=== PATIENT | female | born 1995 | race Caucasian/White ===

== ENCOUNTER 2022-07-01 12:54 | Emergency (ER) | payer BC ==
[~2022-07-01] VITALS: Ht 165.1 cm; Wt 72.6 kg
[~2022-07-01 12:54] MED LIST: DIVA500E2 PO; KEP500 PO
[2022-07-01 12:58] VITALS: BP 123/90
--- NOTE | 2022-07-01 15:06 | NUR ---
NEUROLOGY SPEAKING WITH PT AND FAMILY
[2022-07-01] MEDS ORDERED: LORazepam 2 MG/ML VIAL IM ONE (15:35)
[2022-07-01] MEDS ORDERED: LORazepam 1 MG TAB PO ONE (15:35)
[2022-07-01 16:21] VITALS: BP 129/80
--- NOTE | 2022-07-01 18:02 | NUR ---
PT SIGNED AMA TO SEEK TREATMENT AT HIGHER LEVEL OF CARE
== END 2022-07-01 18:02 | disposition left against medical advice (07) ==
LOC: MED 12:54
DX: R56.9 Unspecified convulsions (principal); Z20.822 Contact with and (suspected) exposure to COVID-19; E11.9 Type 2 diabetes mellitus without complications; Z85.841 Personal history of malignant neoplasm of brain; Z79.4 Long term (current) use of insulin; Z79.899 Other long term (current) drug therapy
CPT/HCPCS: 87426; 96372; 99283; J2060

== ENCOUNTER 2023-02-22 18:27 | Inpatient (IN) | payer BC ==
[~2023-02-22] VITALS: Ht 162.6 cm; Wt 90.3 kg
[2023-02-22 18:30] VITALS: BP 135/91; PULSE 94; TEMP 99.8; O2SAT 100
[2023-02-22] MEDS ORDERED: LORazepam 2 MG/ML VIAL IVP ONE (18:50)
[2023-02-22] MEDS ORDERED: NACL 0.9% 1,000 ML IV ONE (18:50)
[2023-02-22 19:30] LABS: BASOPHILS % (AUTO) 0.6 % (0.0-2.0); EOSINOPHILS % (AUTO) 0.1 % (0.0-4.0); HEMATOCRIT 38.7 % (36-48); HEMOGLOBIN 13.3 g/dL (12.0-16.0); LYMPHOCYTES # (AUTO) 2.5 K/uL (2.5-16.5); LYMPHOCYTES % (AUTO) 34.3 % (20.5-51.1); MEAN CORPUSCULAR HEMOGLOBIN 32 pg (27-31); MEAN CORPUSCULAR HGB CONC 34 g/dL (33-37); MONOCYTES # (AUTO) 0.4 K/uL (0.8-1.0); MONOCYTES % (AUTO) 6.2 % (1.7-9.3); NEUTROPHILS # (AUTO) 4.2 K/uL (1.8-7.7); NEUTROPHILS % (AUTO) 58.8 % (42.2-75.2); PLATELET COUNT (AUTO) 346 K/uL (140-450); RED BLOOD CELL COUNT(AUTO) 4.21 MIL/uL (4.20-5.40); WHITE BLOOD COUNT (AUTO) 7.2 K/uL (4.8-10.8)
[2023-02-22 19:45] LABS: ALBUMIN 3.7 g/dL (3.4-5.0); ANION GAP 18.1 (8-16); CARBON DIOXIDE 19.6 mmol/L (21-32); CREATININE 0.7 mg/dL (0.6-1.3); POTASSIUM 3.7 mmol/L (3.5-5.1); TOTAL BILIRUBIN 0.4 mg/dL (0.0-1.0); TOTAL PROTEIN, SERUM 7.5 g/dL (6.4-8.2)
[2023-02-22] MEDS ORDERED: ONDANSETRON 4 MG/2 ML VIAL IVP ONE (19:55)
[2023-02-22 20:15] LABS: BLOOD GAS BASE EXCESS -3.4 mmol/L (-2.0-2.0); BLOOD GAS HCO3 19.7 mmol/L (22-26); BLOOD GAS PCO2 30.1 mmHg (35-45); BLOOD GAS PH 7.434 (7.35-7.45); BLOOD GAS PO2 89.2 mmHg (75-100)
[2023-02-22] MEDS ORDERED: POTASSIUM CHLORIDE 10 MEQ TABER PO ONE (20:40)
[2023-02-22] MEDS ORDERED: INSULIN REGULAR, HUMAN 100 UNIT in NACL 0.9% 100 ML IV SCH ×4 (20:40→22:15)
[2023-02-22] MEDS ORDERED: DEXTROSE 50% 50 ML SYR IVP PRN ×2 (20:40→22:15)
[2023-02-22] MEDS: DEXT 5% / NACL 0.45% 1,000 ML IV SCH (21:00)
[2023-02-22] MEDS: BLOOD GLUCOSE MONITORING 1 DEV DEV FS SCH ×4 (21:01→23:15)
[2023-02-22] MEDS: NACL 0.9% 1,000 ML IV SCH ×2 (21:01→22:15)
[2023-02-22] MEDS ORDERED: guaiFENesin DM 200/20 MG-10 ML 10 ML UDC PO PRN (22:10)
[2023-02-22] MEDS ORDERED: ONDANSETRON 4 MG/2 ML VIAL IM/IVP PRN (22:10)
[2023-02-22] MEDS ORDERED: DOCUSATE SODIUM 100 MG GELCAP PO PRN (22:10)
[2023-02-22] MEDS ORDERED: NACL 0.9% 1,000 ML IV SCH (22:10)
[2023-02-22] MEDS ORDERED: ACETAMINOPHEN 325 MG TAB PO PRN (22:10)
[2023-02-22] MEDS ORDERED: HYDROcodone/APAP 7.5/325 MG 1 TAB PO PRN (22:10)
[2023-02-22] MEDS ORDERED: ZOLPIDEM 5 MG TAB PO PRN (22:10)
[2023-02-22] MEDS ORDERED: POTASSIUM CHLORIDE 10 MEQ TABER PO PRN (22:10)
[2023-02-22] MEDS ORDERED: INSULIN REGULAR, HUMAN 100 UNIT/ML VIAL IVP ONE (22:15)
[2023-02-22] MEDS ORDERED: DEXT 5% / NACL 0.45% 1,000 ML IV SCH (22:15)
[2023-02-22] MEDS ORDERED: BLOOD GLUCOSE MONITORING 1 DEV DEV FS SCH (22:15)
[2023-02-22] MEDS ORDERED: POTASSIUM CHLORIDE 40 MEQ, LIDOCAINE MPF 1% 25 MG in NACL 0.9% 250 ML IV PRN ×6 (22:15)
[2023-02-22 22:28] LABS: ALCOHOL, BLOOD < 3 mg/dL (<10)
[2023-02-22 22:29] LABS: ACETAMINOPHEN < 0.5 ug/ml (10-30); SALICYLATE < 2.8 mg/dL (2.8-20.0)
[2023-02-22 23:00] VITALS: BP 120/66; PULSE 96; RESP 20; TEMP 97.3; O2SAT 98
[2023-02-22 23:55] LABS: APPEARANCE,URINE CLEAR (CLEAR); BILIRUBIN,URINE NEGATIVE (NEGATIVE); BLOOD, URINE NEGATIVE (NEGATIVE); COLOR,URINE YELLOW (YELLOW); LEUKOCYTE ESTERASE ,URINE NEGATIVE (NEGATIVE); NITRITE, URINE NEGATIVE (NEGATIVE); PH,URINE 6.5 (5.0-9.0); PROTEIN,URINE NEGATIVE (NEGATIVE); UGLUCOSE 1+ (NEGATIVE); UROBILINOGEN,URINE 0.2 EU/dL (0.2 - 1)
[2023-02-23] VITALS (14 sets, daily range): BP systolic 95–123; BP diastolic 50–80; PULSE 87–100; RESP 13–25; TEMP 97.6–98.6; O2SAT 93–100
[2023-02-23] MEDS: BLOOD GLUCOSE MONITORING 1 DEV DEV FS SCH ×15 (00:44→21:04)
[2023-02-23] MEDS: DEXT 5% / NACL 0.45% 1,000 ML IV SCH ×2 (01:40→06:17)
[2023-02-23] MEDS: NACL 0.9% 1,000 ML IV SCH ×4 (01:40→10:15)
[2023-02-23] MEDS: LORazepam 2 MG/ML VIAL IVP PRN ×4 (03:55→15:59)
[2023-02-23 04:26] LABS: BASOPHILS # (AUTO) 0.1 K/uL (0.00-0.22); BASOPHILS % (AUTO) 0.8 % (0.0-2.0); EOSINOPHILS % (AUTO) 0.1 % (0.0-4.0); HEMATOCRIT 36.4 % (36-48); HEMOGLOBIN 12.3 g/dL (12.0-16.0); LYMPHOCYTES # (AUTO) 3.2 K/uL (2.5-16.5); LYMPHOCYTES % (AUTO) 46.4 % (20.5-51.1); MEAN CORPUSCULAR HEMOGLOBIN 31 pg (27-31); MEAN CORPUSCULAR HGB CONC 34 g/dL (33-37); MEAN CORPUSCULAR VOLUME 92.7 fL (80-94); MONOCYTES # (AUTO) 0.5 K/uL (0.8-1.0); NEUTROPHILS % (AUTO) 44.7 % (42.2-75.2); PLATELET COUNT (AUTO) 302 K/uL (140-450); RED BLOOD CELL COUNT(AUTO) 3.93 MIL/uL (4.20-5.40); RED CELL DISTRIBUTION WIDTH 15.3 % (11.6-13.7); WHITE BLOOD COUNT (AUTO) 6.8 K/uL (4.8-10.8)
[2023-02-23 04:46] LABS: ANION GAP 13.5 (8-16); CREATININE 0.5 mg/dL (0.6-1.3); POTASSIUM 3.5 mmol/L (3.5-5.1)
[2023-02-23 05:42] LABS: MAGNESIUM 1.7 mg/dL (1.8-2.4); PHOSPHORUS 3.6 mg/dL (2.5-4.9)
[2023-02-23] MEDS ORDERED: MAG SULF 2000 MG/WATER PREMIX 50 ML IV SCH (07:06)
[2023-02-23 08:13] LABS: ANION GAP 12.9 (8-16); CARBON DIOXIDE 23.3 mmol/L (21-32); CREATININE 0.5 mg/dL (0.6-1.3); POTASSIUM 3.2 mmol/L (3.5-5.1)
[2023-02-23 08:18] LABS: MAGNESIUM 1.7 mg/dL (1.8-2.4); PHOSPHORUS 3.6 mg/dL (2.5-4.9)
[2023-02-23] MEDS: DIVALPROEX 500 MG TABEC PO SCH ×3 (08:41→16:46)
[2023-02-23] MEDS: levETIRAcetam 500 MG TAB PO SCH ×2 (08:41→20:07)
[2023-02-23] MEDS ORDERED: METF-346 PO (08:58)
[2023-02-23] MEDS ORDERED: PANTOPRAZOLE 40 MG TABEC PO SCH (09:00)
[2023-02-23] MEDS ORDERED: INSULIN LANTUS 100 UNITS/ML 10 ML VIAL SUBQ SCH (10:00)
[2023-02-23] MEDS ORDERED: HYDROcodone/APAP 5/325 MG 1 TAB TAB PO PRN (12:00)
[2023-02-23] MEDS: METOCLOPRAMIDE 10 MG/2 ML INJ VIAL IVP SCH ×2 (13:00→20:08)
[2023-02-23 14:00] LABS: ANION GAP 11.5 (8-16); CALCIUM 8.4 mg/dL (8.5-10.1); CARBON DIOXIDE 25.4 mmol/L (21-32); CREATININE 0.5 mg/dL (0.6-1.3); POTASSIUM 3.9 mmol/L (3.5-5.1)
[2023-02-23 14:04] LABS: MAGNESIUM 2.1 mg/dL (1.8-2.4); PHOSPHORUS 3.7 mg/dL (2.5-4.9)
[2023-02-23] MEDS: INSULIN LISPRO SLIDING SCALE 100 UNITS/ML VIAL SUBQ PRN ×2 (16:47→20:24)
[2023-02-24 04:00] VITALS: BP 119/76; PULSE 100; RESP 18; TEMP 98.7; O2SAT 94
[2023-02-24] MEDS: METOCLOPRAMIDE 10 MG/2 ML INJ VIAL IVP SCH (04:41)
[2023-02-24] MEDS: LORazepam 2 MG/ML VIAL IVP PRN (04:41)
[2023-02-24 05:27] LABS: BASOPHILS # (AUTO) 0.1 K/uL (0.00-0.22); BASOPHILS % (AUTO) 0.7 % (0.0-2.0); EOSINOPHILS # (AUTO) 0.1 K/uL (0-0.4); EOSINOPHILS % (AUTO) 0.8 % (0.0-4.0); HEMATOCRIT 38.4 % (36-48); HEMOGLOBIN 13.2 g/dL (12.0-16.0); LYMPHOCYTES # (AUTO) 3.6 K/uL (2.5-16.5); LYMPHOCYTES % (AUTO) 48.2 % (20.5-51.1); MEAN CORPUSCULAR HEMOGLOBIN 32 pg (27-31); MEAN CORPUSCULAR HGB CONC 34 g/dL (33-37); MEAN CORPUSCULAR VOLUME 93.6 fL (80-94); MONOCYTES # (AUTO) 0.5 K/uL (0.8-1.0); MONOCYTES % (AUTO) 6.5 % (1.7-9.3); NEUTROPHILS # (AUTO) 3.3 K/uL (1.8-7.7); NEUTROPHILS % (AUTO) 43.8 % (42.2-75.2); PLATELET COUNT (AUTO) 317 K/uL (140-450); RED CELL DISTRIBUTION WIDTH 15.3 % (11.6-13.7); WHITE BLOOD COUNT (AUTO) 7.4 K/uL (4.8-10.8)
[2023-02-24 06:16] LABS: PHOSPHORUS 4.9 mg/dL (2.5-4.9)
[2023-02-24 06:17] LABS: ANION GAP 13.8 (8-16); CALCIUM 8.5 mg/dL (8.5-10.1); CARBON DIOXIDE 23.9 mmol/L (21-32); CREATININE 0.6 mg/dL (0.6-1.3); POTASSIUM 3.7 mmol/L (3.5-5.1)
[2023-02-24] MEDS ORDERED: INSULIN LANTUS 100 UNITS/ML 10 ML VIAL SUBQ SCH (09:00)
== END 2023-02-24 07:30 | disposition left against medical advice (07) | DRG 254 ==
LOC: MED 18:27 → MIC 22:09 → MTU 02-23 15:23
PROVIDERS: ADMIT Student in an Organized Health Care Education/Training Program; ATTEND Student in an Organized Health Care Education/Training Program
DX: K31.84 Gastroparesis (principal); E11.10 Type 2 diabetes mellitus with ketoacidosis without coma; E11.43 Type 2 diabetes mellitus with diabetic autonomic (poly)neuropathy; E66.9 Obesity, unspecified; G40.909 Epilepsy, unspecified, not intractable, without status epilepticus; Z91.030 Bee allergy status; Z91.040 Latex allergy status; Z79.899 Other long term (current) drug therapy; Z59.00 Homelessness unspecified; Z68.34 Body mass index [BMI] 34.0-34.9, adult; Z91.148 Patient's other noncompliance with medication regimen for other reason
CPT/HCPCS: 36415; 36600; 71045; 80048; 80053; 81003; 82009; 82803; 82948; 83036; 83690; 83735; 84100; 85025; 87040; 87081; 87086; 93005; 96361; 96374; 96375; 99291; G0480; G0482; J1815; J2001; J2060; J2405; J2765; J3475; J3480; J7030; Q0092

== ENCOUNTER 2023-02-26 17:11 | Inpatient (IN) | payer BC ==
[~2023-02-26] VITALS: Ht 152.4 cm; Wt 86.0 kg
[~2023-02-26 17:11] MED LIST changes: +METF-346 PO
[2023-02-26 18:08] VITALS: BP 119/69; PULSE 97; RESP 18; TEMP 98; O2SAT 99
[2023-02-26] MEDS ORDERED: METOCLOPRAMIDE 10 MG/2 ML INJ VIAL IVP ONE (19:55)
[2023-02-26] MEDS ORDERED: diphenhydrAMINE 50 MG/ML VIAL IVP ONE (19:55)
[2023-02-26] MEDS ORDERED: NACL 0.9% 1,000 ML IV SCH (19:55)
[2023-02-26] MEDS ORDERED: HALOPERIDOL IM 5 MG/ML VIAL IM ONE (20:30)
[2023-02-26 21:41] LABS: APPEARANCE,URINE CLEAR (CLEAR); BILIRUBIN,URINE 1+ (NEGATIVE); BLOOD, URINE NEGATIVE (NEGATIVE); COLOR,URINE YELLOW (YELLOW); LEUKOCYTE ESTERASE ,URINE NEGATIVE (NEGATIVE); NITRITE, URINE NEGATIVE (NEGATIVE); PROTEIN,URINE 1+ (NEGATIVE); UGLUCOSE 3+ (NEGATIVE); UROBILINOGEN,URINE 0.2 EU/dL (0.2 - 1)
[2023-02-26 21:47] LABS: BACTERIA,URINE None Seen /HPF (None Seen); ICTOTEST NEGATIVE (NEGATIVE); MUCUS,URINE 1+ /LPF (None Seen); OTHER CASTS, URINE None Seen /LPF (None Seen); RBC,URINE 0-5 /HPF (0-5); SQUAMOUS EPITHELIAL CELL,UR 0-3 (FEW) /LPF (0-3 (FEW)); TRICHOMONAS,URINE None Seen /HPF (None Seen); WBC,URINE 0-5 /HPF (0-5); YEAST,URINE None Seen /HPF (None Seen)
[2023-02-26 21:50] LABS: BASOPHILS % (AUTO) 0.4 % (0.0-2.0); EOSINOPHILS % (AUTO) 0.1 % (0.0-4.0); HEMATOCRIT 40.5 % (36-48); HEMOGLOBIN 13.9 g/dL (12.0-16.0); LYMPHOCYTES # (AUTO) 1.9 K/uL (2.5-16.5); MEAN CORPUSCULAR HEMOGLOBIN 32 pg (27-31); MEAN CORPUSCULAR HGB CONC 34 g/dL (33-37); MEAN CORPUSCULAR VOLUME 92.1 fL (80-94); MONOCYTES # (AUTO) 0.4 K/uL (0.8-1.0); NEUTROPHILS # (AUTO) 5.5 K/uL (1.8-7.7); NEUTROPHILS % (AUTO) 70.5 % (42.2-75.2); PLATELET COUNT (AUTO) 325 K/uL (140-450); RED CELL DISTRIBUTION WIDTH 15.1 % (11.6-13.7); WHITE BLOOD COUNT (AUTO) 7.7 K/uL (4.8-10.8)
[2023-02-26 22:11] LABS: INR 1.47 (0.8-1.2); PROTHROMBIN TIME 15.1 secs (10.8-13.4)
[2023-02-26 22:21] LABS: ACETONE, SERUM Negative (NEGATIVE)
[2023-02-26 22:28] LABS: ALANINE AMINOTRANSFERASE 20 U/L (12-78); ALBUMIN 3.9 g/dL (3.4-5.0); ALKALINE PHOSPHATASE 146 U/L (50-136); ANION GAP 24.5 (8-16); ASPARTATE AMINOTRANSFERASE 6 U/L (15-37); CALCIUM 8.9 mg/dL (8.5-10.1); CARBON DIOXIDE 14.9 mmol/L (21-32); CHLORIDE 97 mmol/L (98-107); CREATINE KINASE, TOTAL 23 U/L (26-192); CREATININE 0.7 mg/dL (0.6-1.3); GFR ARICAN-AMERICAN 130 mL/min (>90); GFR NON ARICAN-AMERICAN 108 mL/min (>90); GLUCOSE 275 mg/dL (74-106); POTASSIUM 3.4 mmol/L (3.5-5.1); SODIUM SERUM 133 mmol/L (136-145); TOTAL BILIRUBIN 0.6 mg/dL (0.0-1.0); TOTAL PROTEIN, SERUM 8.1 g/dL (6.4-8.2); UREA NITROGEN, BLOOD 5 mg/dL (7-18)
[2023-02-26] MEDS ORDERED: KCL 20 MEQ IN 100 mL PREMIX 100 ML IV ONE (22:40)
[2023-02-26] MEDS ORDERED: NACL 0.9% 1,000 ML IV ONE (22:40)
[2023-02-26 22:59] VITALS: O2SAT 99
[2023-02-27] VITALS (13 sets, daily range): BP systolic 114–172; BP diastolic 51–95; PULSE 78–114; RESP 12–25; TEMP 97–99.2; O2SAT 95–99
[2023-02-27] MEDS ORDERED: PROMETHAZINE 25 MG TAB PO PRN (00:10)
[2023-02-27] MEDS ORDERED: QUET200T PO (01:28)
[2023-02-27] MEDS ORDERED: ACETAMINOPHEN 325 MG TAB PO PRN (02:10)
[2023-02-27] MEDS ORDERED: ACETAMINOPHEN 325 MG SUPP RC ONE (02:35)
[2023-02-27] MEDS ORDERED: ACETAMINOPHEN 650 MG SUPP RC PRN (02:35)
[2023-02-27] MEDS: NACL 0.9% 1,000 ML IV SCH ×4 (02:46→19:58)
[2023-02-27] MEDS ORDERED: LORazepam 2 MG/ML VIAL IVP ONE (04:40)
[2023-02-27 04:55] LABS: ALBUMIN 3.8 g/dL (3.4-5.0); ANION GAP 22.1 (8-16); CARBON DIOXIDE 15.4 mmol/L (21-32); CREATININE 0.7 mg/dL (0.6-1.3); POTASSIUM 3.5 mmol/L (3.5-5.1); TOTAL BILIRUBIN 0.5 mg/dL (0.0-1.0); TOTAL PROTEIN, SERUM 7.9 g/dL (6.4-8.2)
[2023-02-27] MEDS: ONDANSETRON 4 MG/2 ML VIAL IVP PRN ×3 (05:14→14:22)
[2023-02-27] MEDS: BLOOD GLUCOSE MONITORING 1 DEV DEV FS SCH ×11 (06:00→23:00)
[2023-02-27] MEDS ORDERED: KCL 20 MEQ IN 100 mL PREMIX 200 ML IV ONE (06:10)
[2023-02-27 08:29] LABS: ALBUMIN 3.5 g/dL (3.4-5.0); ANION GAP 20.4 (8-16); CALCIUM 8.6 mg/dL (8.5-10.1); CARBON DIOXIDE 15.7 mmol/L (21-32); CREATININE 0.7 mg/dL (0.6-1.3); POTASSIUM 4.1 mmol/L (3.5-5.1); TOTAL BILIRUBIN 0.5 mg/dL (0.0-1.0)
[2023-02-27] MEDS ORDERED: INSULIN REGULAR, HUMAN 100 UNIT/ML VIAL SUBQ SCH (10:16)
[2023-02-27] MEDS ORDERED: BLOOD GLUCOSE MONITORING 1 DEV DEV FS SCH (12:00)
[2023-02-27 12:33] LABS: ALBUMIN 3.5 g/dL (3.4-5.0); ANION GAP 19.5 (8-16); CALCIUM 8.4 mg/dL (8.5-10.1); CREATININE 0.6 mg/dL (0.6-1.3); POTASSIUM 3.5 mmol/L (3.5-5.1); TOTAL BILIRUBIN 0.4 mg/dL (0.0-1.0); TOTAL PROTEIN, SERUM 7.3 g/dL (6.4-8.2)
[2023-02-27] MEDS ORDERED: INSULIN LISPRO SLIDING SCALE 100 UNITS/ML VIAL SUBQ PRN (13:00)
[2023-02-27] MEDS ORDERED: LORazepam 2 MG/ML VIAL IM/IVP PRN (14:45)
[2023-02-27] MEDS ORDERED: INSULIN REGULAR, HUMAN 100 UNIT in NACL 0.9% 100 ML IV SCH ×4 (14:55→19:40)
[2023-02-27] MEDS ORDERED: DEXTROSE 50% 50 ML SYR IVP PRN (14:55)
[2023-02-27] MEDS ORDERED: QUEtiapine FUMARATE 100 MG TAB PO SCH (15:30)
[2023-02-27 17:50] LABS: ALBUMIN 3.6 g/dL (3.4-5.0); ANION GAP 19.9 (8-16); CALCIUM 8.8 mg/dL (8.5-10.1); CARBON DIOXIDE 14.5 mmol/L (21-32); CREATININE 0.5 mg/dL (0.6-1.3); MAGNESIUM 1.5 mg/dL (1.8-2.4); PHOSPHORUS 2.5 mg/dL (2.5-4.9); POTASSIUM 3.4 mmol/L (3.5-5.1); TOTAL BILIRUBIN 0.5 mg/dL (0.0-1.0); TOTAL PROTEIN, SERUM 7.3 g/dL (6.4-8.2)
[2023-02-27 18:06] LABS: FREE T4 (FREE THYROXINE) 1.27 ng/dL (0.76-1.46); THYROID STIMULATING HORMONE 0.89 uIU/mL (0.34-3.74)
[2023-02-27] MEDS: DIVALPROEX 500 MG TABEC PO SCH (18:25)
[2023-02-27] MEDS: DEXT 5% / NACL 0.45% 1,000 ML IV SCH (20:00)
[2023-02-27 20:43] LABS: ALBUMIN 3.5 g/dL (3.4-5.0); CALCIUM 8.9 mg/dL (8.5-10.1); CARBON DIOXIDE 18.6 mmol/L (21-32); CREATININE 0.6 mg/dL (0.6-1.3); MAGNESIUM 1.6 mg/dL (1.8-2.4); PHOSPHORUS 2.7 mg/dL (2.5-4.9); POTASSIUM 3.6 mmol/L (3.5-5.1); TOTAL BILIRUBIN 0.4 mg/dL (0.0-1.0); TOTAL PROTEIN, SERUM 7.3 g/dL (6.4-8.2)
[2023-02-27] MEDS ORDERED: levETIRAcetam 500 MG TAB PO SCH (21:00)
[2023-02-27] MEDS ORDERED: metFORMIN 500 MG TAB PO SCH (21:00)
[2023-02-27] MEDS: MAG SULF 2000 MG/WATER PREMIX 50 ML IV PRN (23:11)
[2023-02-28] VITALS (9 sets, daily range): BP systolic 105–149; BP diastolic 63–87; PULSE 86–124; RESP 16–26; TEMP 96–97.8; O2SAT 98–100
[2023-02-28] MEDS: DEXT 5% / NACL 0.45% 1,000 ML IV SCH ×2 (00:40→03:29)
[2023-02-28] MEDS: BLOOD GLUCOSE MONITORING 1 DEV DEV FS SCH ×10 (00:44→21:30)
[2023-02-28 00:45] LABS: ALBUMIN 3.4 g/dL (3.4-5.0); CALCIUM 8.7 mg/dL (8.5-10.1); CARBON DIOXIDE 19.7 mmol/L (21-32); CREATININE 0.6 mg/dL (0.6-1.3); MAGNESIUM 1.6 mg/dL (1.8-2.4); PHOSPHORUS 2.4 mg/dL (2.5-4.9); TOTAL BILIRUBIN 0.3 mg/dL (0.0-1.0); TOTAL PROTEIN, SERUM 6.8 g/dL (6.4-8.2)
[2023-02-28 00:47] LABS: POTASSIUM 2.7 mmol/L (3.5-5.1)
[2023-02-28] MEDS: NACL 0.9% 1,000 ML IV SCH ×4 (00:58→20:38)
[2023-02-28] MEDS: KCL 20 MEQ IN 100 mL PREMIX 200 ML IV PRN ×2 (01:02→09:49)
[2023-02-28] MEDS: ONDANSETRON 4 MG/2 ML VIAL IVP PRN (05:18)
[2023-02-28] MEDS ORDERED: LORazepam 2 MG/ML VIAL IVP ONE (05:20)
[2023-02-28 05:47] LABS: BASOPHILS # (AUTO) 0.1 K/uL (0.00-0.22); BASOPHILS % (AUTO) 1.1 % (0.0-2.0); EOSINOPHILS % (AUTO) 0.3 % (0.0-4.0); HEMATOCRIT 37.9 % (36-48); HEMOGLOBIN 13.2 g/dL (12.0-16.0); LYMPHOCYTES # (AUTO) 2.6 K/uL (2.5-16.5); MEAN CORPUSCULAR HEMOGLOBIN 32 pg (27-31); MEAN CORPUSCULAR HGB CONC 35 g/dL (33-37); MEAN CORPUSCULAR VOLUME 91.8 fL (80-94); MONOCYTES # (AUTO) 0.5 K/uL (0.8-1.0); MONOCYTES % (AUTO) 7.9 % (1.7-9.3); NEUTROPHILS # (AUTO) 3.6 K/uL (1.8-7.7); NEUTROPHILS % (AUTO) 52.7 % (42.2-75.2); PLATELET COUNT (AUTO) 278 K/uL (140-450); RED BLOOD CELL COUNT(AUTO) 4.12 MIL/uL (4.20-5.40); RED CELL DISTRIBUTION WIDTH 14.6 % (11.6-13.7); WHITE BLOOD COUNT (AUTO) 6.8 K/uL (4.8-10.8)
[2023-02-28 06:28] LABS: ALBUMIN 3.4 g/dL (3.4-5.0); ANION GAP 14.7 (8-16); CALCIUM 8.5 mg/dL (8.5-10.1); CARBON DIOXIDE 19.6 mmol/L (21-32); CREATININE 0.6 mg/dL (0.6-1.3); POTASSIUM 3.3 mmol/L (3.5-5.1); TOTAL BILIRUBIN 0.3 mg/dL (0.0-1.0); TOTAL PROTEIN, SERUM 7.1 g/dL (6.4-8.2)
[2023-02-28] MEDS ORDERED: DEXTROSE 50% 50 ML SYR IVP PRN (06:35)
[2023-02-28] MEDS ORDERED: BLOOD GLUCOSE MONITORING 1 DEV DEV FS SCH ×2 (07:10→07:30)
[2023-02-28 07:14] LABS: MAGNESIUM 1.6 mg/dL (1.8-2.4); PHOSPHORUS 2.7 mg/dL (2.5-4.9)
[2023-02-28] MEDS: INSULIN LANTUS 100 UNITS/ML 10 ML VIAL SUBQ SCH ×2 (07:17→07:38)
[2023-02-28] MEDS ORDERED: INSULIN REGULAR, HUMAN 100 UNIT in NACL 0.9% 100 ML IV SCH ×2 (07:30)
[2023-02-28] MEDS: MAG SULF 2000 MG/WATER PREMIX 50 ML IV PRN (08:00)
[2023-02-28 08:25] LABS: ALBUMIN 3.1 g/dL (3.4-5.0); ANION GAP 13.6 (8-16); CALCIUM 8.3 mg/dL (8.5-10.1); CARBON DIOXIDE 20.7 mmol/L (21-32); CREATININE 0.5 mg/dL (0.6-1.3); POTASSIUM 3.3 mmol/L (3.5-5.1); TOTAL BILIRUBIN 0.3 mg/dL (0.0-1.0); TOTAL PROTEIN, SERUM 6.4 g/dL (6.4-8.2)
[2023-02-28] MEDS ORDERED: levETIRAcetam 1,000 MG in NACL 0.9% 100 ML IV SCH (09:00)
[2023-02-28] MEDS ORDERED: QUEtiapine FUMARATE 100 MG TAB PO SCH (09:00)
[2023-02-28] MEDS: DIVALPROEX 500 MG TABEC PO SCH ×4 (09:52→17:50)
[2023-02-28] MEDS: levETIRAcetam 1,000 MG in NACL 0.9% 100 ML IV SCH ×2 (09:57→20:38)
[2023-02-28] MEDS: INSULIN LISPRO SLIDING SCALE 100 UNITS/ML VIAL SUBQ PRN ×3 (12:18→20:56)
[2023-02-28] MEDS ORDERED: LORazepam 1 MG TAB PO PRN (14:50)
[2023-03-01 04:00] VITALS: BP 104/69; PULSE 108; RESP 18; TEMP 97.8; O2SAT 97
[2023-03-01] MEDS: BLOOD GLUCOSE MONITORING 1 DEV DEV FS SCH (07:31)
[2023-03-01] MEDS: INSULIN LISPRO SLIDING SCALE 100 UNITS/ML VIAL SUBQ PRN (07:33)
[2023-03-01 08:00] VITALS: PULSE 93; RESP 17
[2023-03-01 08:08] LABS: T4 (THYROXINE) 6.9 ug/dL (4.5-12.0)
[2023-03-01 08:15] LABS: ALBUMIN 2.9 g/dL (3.4-5.0); ANION GAP 12.1 (8-16); CALCIUM 7.9 mg/dL (8.5-10.1); CARBON DIOXIDE 24.3 mmol/L (21-32); CREATININE 0.5 mg/dL (0.6-1.3); POTASSIUM 3.4 mmol/L (3.5-5.1); TOTAL BILIRUBIN 0.2 mg/dL (0.0-1.0); TOTAL PROTEIN, SERUM 6.3 g/dL (6.4-8.2)
[2023-03-01] MEDS ORDERED: LANTUS SC (09:48)
[2023-03-01 10:31] VITALS: BP 133/79; RESP 17; TEMP 97.5
[2023-03-01 15:29] LABS: HEMOGLOBIN A1C 8.8 % (4.8-5.6)
== END 2023-03-01 11:31 | disposition home or self-care (01) | DRG 420 ==
LOC: MED 17:11 → MTU 02-27 00:04 → MIC 02-27 03:24 → MTU 02-28 18:30
PROVIDERS: ADMIT Family Medicine; ATTEND Family Medicine
PROC: 05HY33Z Insertion of Infusion Device into Upper Vein, Percutaneous Approach (ICD-10-PCS; principal; 2023-02-27)
PROC: B54MZZA Ultrasonography of Right Upper Extremity Veins, Guidance (ICD-10-PCS; 2023-02-27)
DX: E11.10 Type 2 diabetes mellitus with ketoacidosis without coma (principal); N17.9 Acute kidney failure, unspecified; R65.10 Systemic inflammatory response syndrome (SIRS) of non-infectious origin without acute organ dysfunction; R56.9 Unspecified convulsions; E86.0 Dehydration; E87.6 Hypokalemia; F41.9 Anxiety disorder, unspecified; R74.01 Elevation of levels of liver transaminase levels; Z91.030 Bee allergy status; Z91.040 Latex allergy status; Z79.899 Other long term (current) drug therapy
CPT/HCPCS: 36415; 71045; 80053; 81001; 82009; 82550; 82803; 82948; 83036; 83605; 83735; 84100; 84436; 84439; 84443; 84479; 84484; 85025; 85610; 85730; 87040; 87081; 87086; 93005; 96361; 96365; 96372; 96375; 99285; J1200; J1630; J1815; J1953; J2060; J2405; J2765; J3475; J3480

== ENCOUNTER 2024-01-20 08:42 | Emergency (ER) | payer BC ==
[~2024-01-20] VITALS: Ht 157.5 cm; Wt 63.5 kg
[~2024-01-20 08:42] MED LIST changes: +LANTUS SC; +QUET200T PO
[2024-01-20 09:06] VITALS: BP 100/72; PULSE 100; RESP 16; TEMP 98.8; O2SAT 98
[2024-01-20 10:08] LABS: BASOPHILS # (AUTO) 0.1 K/uL (0.00-0.22); BASOPHILS % (AUTO) 0.5 % (0.0-2.0); EOSINOPHILS % (AUTO) 0.3 % (0.0-4.0); HEMATOCRIT 33.6 % (36-48); HEMOGLOBIN 11.1 g/dL (12.0-16.0); LYMPHOCYTES # (AUTO) 1.2 K/uL (2.5-16.5); MEAN CORPUSCULAR HEMOGLOBIN 28 pg (27-31); MEAN CORPUSCULAR HGB CONC 33 g/dL (33-37); MEAN CORPUSCULAR VOLUME 85.6 fL (80-94); MONOCYTES # (AUTO) 0.6 K/uL (0.8-1.0); MONOCYTES % (AUTO) 5.3 % (1.7-9.3); NEUTROPHILS # (AUTO) 8.5 K/uL (1.8-7.7); NEUTROPHILS % (AUTO) 81.9 % (42.2-75.2); PLATELET COUNT (AUTO) 311 K/uL (140-450); RED BLOOD CELL COUNT(AUTO) 3.93 MIL/uL (4.20-5.40); RED CELL DISTRIBUTION WIDTH 17.9 % (11.6-13.7); WHITE BLOOD COUNT (AUTO) 10.3 K/uL (4.8-10.8)
[2024-01-20] MEDS ORDERED: KETOROLAC 30 MG/ML VIAL ONE (10:17)
[2024-01-20] MEDS ORDERED: ONDANSETRON 4 MG/2 ML VIAL ONE (10:17)
[2024-01-20 10:29] LABS: ANION GAP 12.7 (8-16); CALCIUM 8.7 mg/dL (8.5-10.1); CARBON DIOXIDE 24.3 mmol/L (21-32); CREATININE 0.6 mg/dL (0.6-1.3)
[2024-01-20] MEDS: NACL 0.9% 1,000 ML IV ONE (10:31)
[2024-01-20] MEDS: ONDANSETRON 4 MG/2 ML VIAL IVP ONE (10:32)
[2024-01-20] MEDS: KETOROLAC 30 MG/ML VIAL IVP ONE (10:33)
[2024-01-20 10:36] LABS: ALBUMIN 3.3 g/dL (3.4-5.0); BILIRUBIN,DIRECT 0.1 mg/dL (0.0-0.3); TOTAL BILIRUBIN 0.4 mg/dL (0.0-1.0)
[2024-01-20 10:38] LABS: APPEARANCE,URINE CLEAR (CLEAR); BILIRUBIN,URINE NEGATIVE (NEGATIVE); BLOOD, URINE 3+ (NEGATIVE); COLOR,URINE YELLOW (YELLOW); LEUKOCYTE ESTERASE ,URINE NEGATIVE (NEGATIVE); NITRITE, URINE NEGATIVE (NEGATIVE); PH,URINE 8.5 (5.0-9.0); PROTEIN,URINE 1+ (NEGATIVE); UGLUCOSE 3+ (NEGATIVE)
[2024-01-20 10:57] LABS: RBC,URINE 20-50 /HPF (0-5)
[2024-01-20 10:58] LABS: BACTERIA,URINE 1+ /HPF (None Seen); MUCUS,URINE 1+ /LPF (None Seen); WBC,URINE 0-5 /HPF (0-5)
[2024-01-20 13:00] VITALS: BP 100/72; PULSE 91; RESP 13; TEMP 98.8; O2SAT 98
== END 2024-01-20 13:00 | disposition home or self-care (01) ==
LOC: MED 08:42
DX: R10.9 Unspecified abdominal pain (principal); R11.0 Nausea; E11.9 Type 2 diabetes mellitus without complications; Z86.69 Personal history of other diseases of the nervous system and sense organs; Z79.84 Long term (current) use of oral hypoglycemic drugs; Z79.4 Long term (current) use of insulin; Z79.899 Other long term (current) drug therapy; Z91.040 Latex allergy status; Z91.030 Bee allergy status
CPT/HCPCS: 36415; 74176; 80048; 80076; 81001; 81025; 82948; 83690; 84703; 85025; 96361; 96374; 96375; 99285; J1885; J2405; J7030